=== PATIENT | male | born 1975 | race Caucasian/White ===

== ENCOUNTER 2017-05-03 02:10 | Emergency (ER) | payer OTHER ==
[~2017-05-03] VITALS: Ht 180.3 cm; Wt 136.1 kg
[2017-05-03 02:10] VITALS: BP_SYST 199
[2017-05-03] MEDS ORDERED: NACL 0.9% 500 ML IV ONE (02:30)
[2017-05-03] MEDS ORDERED: ALBUTEROL SULFATE 0.083% 2.5 MG/3 ML VIAL.NEB INH ONE (02:30)
[2017-05-03] MEDS ORDERED: FAMOTIDINE PF 20 MG/2 ML VIAL IVP ONE (02:30)
[2017-05-03] MEDS ORDERED: ENALAPRILAT DIHYDRATE 1.25 MG/ML VIAL IVP ONE (02:30)
[2017-05-03] MEDS ORDERED: methylPREDNISolone SOD SUCC/PF 62.5 MG/ML VIAL IVP ONE (02:30)
[2017-05-03 02:45] VITALS: BP_SYST 152
== END 2017-05-03 03:00 | disposition home or self-care (01) ==
LOC: SED 02:10
DX: K21.9 Gastro-esophageal reflux disease without esophagitis (principal); J38.5 Laryngeal spasm
CPT/HCPCS: 94640; 96361; 96374; 96375; 99291; J2930; J3490; J7030